=== PATIENT | male | born 1940 | race Caucasian/White ===

== ENCOUNTER → 2018-02-25 | Outpatient (CLI) | payer OTHER, MEDICARE | LOC: FIMAGING 15:57 | DX: R07.81 Pleurodynia (principal); R04.2 Hemoptysis; W19.XXXA Unspecified fall, initial encounter; R91.8 Other nonspecific abnormal finding of lung field ==

== ENCOUNTER → 2018-03-20 | Outpatient (CLI) | payer OTHER, MEDICARE | LOC: FIMAGING 10:21 | PROVIDERS: ATTEND Internal Medicine Pulmonary Disease | DX: R91.8 Other nonspecific abnormal finding of lung field (principal); E04.9 Nontoxic goiter, unspecified ==

== ENCOUNTER 2018-04-09 13:35 | Day surgery (SDC) | payer OTHER, MEDICARE ==
[2018-04-09] MEDS ORDERED: fentaNYL 100 MCG/2 ML INJ IVP ONE (13:50)
[2018-04-09] MEDS ORDERED: MIDAZOLAM 2 MG/2 ML VIAL IVP ONE (13:50)
[2018-04-09] MEDS ORDERED: NS 500 ML IV ONE (13:53)
[2018-04-09] MEDS ORDERED: ALBUTEROL 3 ML DEYVIAL IH ONE (13:53)
[2018-04-09] MEDS ORDERED: MIDAZOLAM 2 MG/2 ML VIAL ONE (13:56)
[2018-04-09] MEDS ORDERED: fentaNYL 100 MCG/2 ML INJ ONE (13:56)
[2018-04-09] MEDS ORDERED: ALBUTEROL 3 ML DEYVIAL ONE (13:56)
[2018-04-09] MEDS ORDERED: LIDOCAINE 1% 300 MG/30 ML SDV ONE (13:56)
[2018-04-09] MEDS ORDERED: BENZOCAINE UNIT DOSE SPRAY HURRICAINE MM ONE (13:56)
[2018-04-09] MEDS ORDERED: LIDOCAINE 2% JELLY 5 ML TUBE ONE (13:57)
[2018-04-09] MEDS ORDERED: LIDOCAINE HCL 4% TOPICAL SOLN 50ML ONE (13:57)
[2018-04-09] MEDS ORDERED: EPINEPHrine 1 MG/ML INJ ONE (13:57)
--- NOTE | 2018-04-09 14:02 | PDPROPOC ---
Sedation Plan of Care Sedation Plan of Care: vital signs stable, mental status noted, patient educated of risks, benefits, alternatives, patient can tolerate sedation ASA Classification: ASA 1 Planned drugs: fentanyl, midazolam Mallampati Score: Class 1 Mallampati Reference Image: Patient passed 3-3-2 rule?: Yes
--- NOTE | 2018-04-09 14:03 | PDHPUP ---
History & Physical Update H&P update statement: This history and physical update is based on an assessment of the patient which was completed after admission or registration (within 24 hours), but prior to the surgery/procedure. H&P update: H&P reviewed & patient examined, no change in patient's condition since H&P completed (For out pt bronch for right upper lobe cavitary lesion.)
[2018-04-09 15:57] VITALS: BP 169/97
--- NOTE | 2018-04-09 16:47 | GPN ---
[f rep st] PROCEDURE NOTE DATE OF PROCEDURE: 04/09/2018 PROCEDURE: Bronchoscopy. REASON FOR PROCEDURE: Small right upper lobe lesion, mildly cavitary in a patient with recent hemopt ysis. This procedure is being done to try to determine the etiology of this lesion. DESCRIPTION OF PROCEDURE: The procedure was performed in endoscopy in a negative pressure room. N95 masks were worn. Informed consent was obtained from the patient. Topical anesthesia, included a sm all amount of Hurricaine spray to the posterior oropharynx, 5 cc of 4% lidocaine to the same location , and approximately 20 cc of 1% lidocaine to the vocal cords and lower tracheobronchial tree. Consci ous sedation, included 3 mg of Versed and 75 mcg of fentanyl. The fiberoptic bronchoscope was passed via a bite block orally into the larynx. Laryngeal structures were normal. The vocal cords moved normally with cough and respiration. The bronchoscope was then advanced into the trachea and into the lower tracheobronchial tree bilaterally. All areas were obser abraham to at least the segmental level. Anatomy was normal bilaterally. There were no secretions, no e ndobronchial lesions, no erythema or edema. The right upper lobe was specifically evaluated to the s ubsegmental level. There were no abnormalities and no secretions found. Bronchoalveolar lavage and brush biopsy samples were taken from the posterior segment of the right upper lobe. The patient's le rosendo could not be definitively identified by fluoroscopy during the procedure; thus, no biopsies were attempted. The patient tolerated the procedure well. There were no complications. Vital signs and oxygen satur ation remained stable throughout the procedure. IMPRESSION: 1. Normal endobronchial anatomy without any abnormalities or secretions related to the posterior seg ment of the right upper lobe. 2. Right upper lobe lesion, query etiology. Appropriate samples were obtained and sent to the labor atory. These, included cultures for routine aerobic organisms, fungal organisms, and mycobacterial o rganisms. Cytologies were requested from the bronchoalveolar lavage sample and from the brush biopsy samples. /[id number]/MODL
== END 2018-04-09 17:07 | disposition home or self-care (01) ==
LOC: FSGY 13:35
PROVIDERS: ATTEND Internal Medicine Pulmonary Disease
PROC: 0BDC8ZX Extraction of Right Upper Lung Lobe, Via Natural or Artificial Opening Endoscopic, Diagnostic (ICD-10-PCS; principal; 2018-04-09 14:30)
PROC: 0B948ZX Drainage of Right Upper Lobe Bronchus, Via Natural or Artificial Opening Endoscopic, Diagnostic (ICD-10-PCS; principal; 2018-04-09 14:30)
PROC: BB12ZZZ Fluoroscopy of Right Lung (ICD-10-PCS; principal; 2018-04-09 14:30)
DX: R91.8 Other nonspecific abnormal finding of lung field (principal); R04.2 Hemoptysis
CPT/HCPCS: J0171; J2250; J3010; J7613

== ENCOUNTER → 2018-10-09 | Outpatient (CLI) | payer OTHER, MEDICARE | LOC: FIMAGING 12:03 | PROVIDERS: ATTEND Internal Medicine Pulmonary Disease | DX: R04.2 Hemoptysis (principal); E04.1 Nontoxic single thyroid nodule ==